=== PATIENT | male | born 1940 | race African-American/Black ===

== ENCOUNTER 2016-06-12 08:24 | Emergency (ER) | payer MEDICARE, OTHER ==
[~2016-06-12] VITALS: Ht 182.9 cm; Wt 77.1 kg
[~2016-06-12 08:24] MED LIST: ATOR20TA PO; IBRU140C; INSU100C7 SQ; METF1000 PO
[2016-06-12 08:37] VITALS: BP 151/79
== END 2016-06-12 10:06 | disposition home or self-care (01) ==
LOC: ER 08:28
DX: H10.33 Unspecified acute conjunctivitis, bilateral (principal); E11.9 Type 2 diabetes mellitus without complications; H35.30 Unspecified macular degeneration; I10 Essential (primary) hypertension; M10.9 Gout, unspecified; Z79.4 Long term (current) use of insulin; Z85.828 Personal history of other malignant neoplasm of skin
CPT/HCPCS: 99283; A4606; Z7610

== ENCOUNTER 2016-06-19 11:19 | Emergency (ER) | payer MEDICARE, OTHER ==
[~2016-06-19] VITALS: Ht 175.3 cm; Wt 70.8 kg
[2016-06-19 11:25] VITALS: BP 134/77
== END 2016-06-19 12:28 | disposition home or self-care (01) ==
LOC: ER 11:20
DX: H10.9 Unspecified conjunctivitis (principal); I10 Essential (primary) hypertension; M10.9 Gout, unspecified; E11.9 Type 2 diabetes mellitus without complications; Z79.4 Long term (current) use of insulin; Z85.828 Personal history of other malignant neoplasm of skin
CPT/HCPCS: A4606; Z7610

== ENCOUNTER 2017-08-04 13:08 | Inpatient (IN) | payer MEDICARE, OTHER ==
[~2017-08-04] VITALS: Ht 182.9 cm; Wt 69.4 kg
--- NOTE | 2017-08-04 13:08 | NUR ---
FRANCESCA FROM [facility] SENT BY DR SALINAS FOR STAPH INFECTION TO THE HEAD
--- NOTE | 2017-08-04 14:42 | NUR ---
TREATING ENGINEER HELPER AT BEDSIDE
[2017-08-04 14:48] LABS: BASOPHILS % (AUTO) 0.7 % (0.0-2.0); EOSINOPHILS % (AUTO) 3.3 % (0.0-6.0); HEMATOCRIT 36 % (39-51); HEMOGLOBIN 12.4 g/dL (13.5-17.5); LYMPHOCYTES # (AUTO) 0.6 /CMM (0.8-4.8); LYMPHOCYTES % (AUTO) 9.1 % (20.0-44.0); MEAN CORPUSCULAR HGB CONC 34 g/dl (31.0-36.0); MEAN CORPUSCULAR VOLUME 97 fL (80-96); MONOCYTES # (AUTO) 0.4 /CMM (0.1-1.30); MONOCYTES % (AUTO) 6.4 % (2.0-12.0); NEUTROPHILS # (AUTO) 5.4 /CMM (1.8-8.9); NEUTROPHILS % (AUTO) 80.5 % (43.0-81.0); PLATELET COUNT (AUTO) 121 /CMM (150-450); RDW COEFFICIENT OF VARIATION 13.1 (11.5-15.0); RED BLOOD CELL COUNT(AUTO) 3.69 MIL/uL (4.5-6.0); WHITE BLOOD COUNT (AUTO) 6.6 K/uL (4.3-11.0)
[2017-08-04] MEDS ORDERED: PIPERACILLIN /TAZOBACTAM 3.375 G in IV D5W 50 ML IV ONE (15:00)
[2017-08-04 15:05] LABS: CARBON DIOXIDE 31 mmol/L (21-32); CHLORIDE 101 mmol/L (98-107); CREATININE 1.4 mg/dL (0.6-1.3); GLUCOSE 159 mg/dL (74-106); SODIUM SERUM 140 mmol/L (136-145); UREA NITROGEN, BLOOD 25 mg/dL (7-18)
[2017-08-04 15:10] LABS: ALANINE AMINOTRANSFERASE 22 U/L (12-78); ALBUMIN 3.9 g/dL (3.4-5.0); ALKALINE PHOSPHATASE 87 U/L (46-116); ASPARTATE AMINOTRANSFERASE 21 U/L (15-37); BILIRUBIN,DIRECT 0.3 mg/dL (0.0-0.2); BILIRUBIN,TOTAL 0.7 mg/dL (0.2-1.0); TOTAL PROTEIN, SERUM 6.9 g/dL (6.4-8.2)
--- NOTE | 2017-08-04 15:45 | NUR ---
CALLED DR MURGUIA OFFICE AND A PAGE WAS SENT OUT TO HIM.
--- NOTE | 2017-08-04 15:51 | NUR ---
CALLED NURSING SHIRT MARKER AND REQUESTED A MED SURG BED FOR THIS PT.
[2017-08-04] MEDS ORDERED: ALLO100T PO (16:08)
[2017-08-04] MEDS ORDERED: MIRT15TA7 PO (16:08)
[2017-08-04] MEDS ORDERED: IBRU420T PO (16:08)
[2017-08-04] MEDS ORDERED: LINA5TAB PO (16:08)
[2017-08-04] MEDS ORDERED: DULA1.5P SQ (16:08)
[2017-08-04] MEDS ORDERED: NATE120T6 PO (16:08)
[2017-08-04] MEDS ORDERED: ASPI-1152 PO (16:08)
[2017-08-04] MEDS ORDERED: ACAR25TA2 PO (16:08)
[2017-08-04] MEDS ORDERED: PANT40TA2 PO (16:08)
[2017-08-04] MEDS ORDERED: DAPA10TA PO (16:08)
--- NOTE | 2017-08-04 16:22 | NUR ---
PT IS ASSIGNED TO MED SURG RM#: [id number], PT IS DIAGNOSED WITH SCALP CELLULITIS, AND SERG SALINAS IS THE ACCEPTING MD.
--- NOTE | 2017-08-04 16:29 | NUR ---
GAVE REPORT TO KRYSTINA PUCKETT MEDSURG STAPH CELLULITIS. ROOM 314-2
--- NOTE | 2017-08-04 17:30 | NUR ---
RN NOTES PT WAS BROUGHT UP TO THE FLOOR IN STABLE CONDITION. PT IS ALERT AND ORIENTED X4, ABLE TO AMBULATE TO THE BED. PT ON RA, RESPIRATIONS ARE EVEN AND UNLABORED. IV ON R WRIST INTACT AND PATENT. SAFETY MEASURES ARE IN PLACE, CALL LIGHT IS IN REACH. WILL CONTINUE TO MONITOR.
--- NOTE | 2017-08-04 18:37 | NUR ---
RN NOTES PT IS SITTING IN BED, AWAKE AND ALERT, RESTING COMFORTABLY. PT ON RA, RESPIRATIONS ARE EVEN AND UNLABORED. IV ON R WRIST INTACT AND SL. NO SIGNS OF DISTRESS NOTED. SAFETY MEASURES ARE IN PLACE, CALL LIGHT IS IN REACH. WILL ENDORSE TO STEAM FINISHER RN FOR CONTINUITY OF CARE.
--- NOTE | 2017-08-04 19:00 | NUR ---
MS RN NOTES RECEIVE PT IN BED A/OX 4,. NO S/S OF DISTRESS, STABLE, SAFETY MEASURES IN PLACE, CALL LIGHT WITHIN REACH, WILL CONTINUE TO MONITOR
[2017-08-04 20:00] VITALS: BP 145/71
--- NOTE | 2017-08-04 20:50 | NUR ---
SPOKE TO DR. SALINAS RECEIVE ORDER OF [facility] NOTED AND CARRIED OUT RECEIVED ORDERS MEDS VERIFIED ORDERS READ BACK AND VERIFIED NOTED AND CARRIED OUT
[2017-08-04] MEDS ORDERED: DEXTROSE 50%-WATER 50 ML DISP.SYRIN IV PRN ×2 (21:00→21:30)
[2017-08-04] MEDS ORDERED: INSULIN REGULAR, HUMAN 100 UNIT/ML 3 ML VIAL SQ PRN (21:00)
[2017-08-04] MEDS ORDERED: VANCOMYCIN 1 GM VIAL ONE (21:26)
[2017-08-04] MEDS: ATORVASTATIN 10 MG TABLET PO SCH (21:52)
[2017-08-04] MEDS ORDERED: BLOOD SUGAR DIAGNOSTIC 1 EACH STRIP IN SCH (22:00)
[2017-08-04] MEDS ORDERED: VANCOMYCIN 1 GM in IV D5W 250 ML IV ONE (22:00)
[2017-08-04] MEDS: BLOOD SUGAR DIAGNOSTIC 1 EACH STRIP IN SCH (22:04)
[2017-08-04] MEDS: INSULIN ASPART/LISPRO 100 UNIT/ML CARTRIDGE SQ PRN (22:05)
[2017-08-05] MEDS: BLOOD SUGAR DIAGNOSTIC 1 EACH STRIP IN SCH ×4 (06:14→21:52)
--- NOTE | 2017-08-05 06:23 | NUR ---
MS RN NOTES PT IN BED ASLEEP AND EASILY AWAKEN, NOT IN DISTRESS, AM CARE PROVIDED. TOLERATING ROOM AIR 98%. STABLE CONDITION. NO ACUTE CHANGES THROUGHOUT THE SHIFT. KEPT CLEAN AND DRY AND COMFORT. NURSING CARE RENDERED. NEEDS ATTENDED AND ANTICIPATED. GOOD SKIN CARE PROVIDED. ON LOW BED TO ENSURE SAFETY, CALL LIGHT WITHIN REACH, WILL ENDORSE TO THE NEXT SHIFT CONTINUE PLAN OF CARE
[2017-08-05] MEDS ORDERED: FEE PK DOSING 1 MIN EA MC ONE (07:01)
--- NOTE | 2017-08-05 07:01 | NUR ---
ENDORSE TO SADA RN TO GIVE 3 UNITS OF INSULIN OF NOVOLOG/HUMALOG SLIDING COVERAGE DRUG NOT AVAILABLE AND PER PT REQUEST. BLOOD SUGAR 180 MG/DL
--- NOTE | 2017-08-05 07:35 | NUR ---
MS/RN OPENING NOTE PATIENT IS RECEIVED IN BED AWAKE. ALERT AND ORIENTED X4. DENIES SOB. RESPIRATION REGULAR AND UNLABORED. DENIES PAIN. RIGHT WRIST G 20 PATENT AND SALINE LOCKED. BED LOW AND LOCKED. SIDE RAILS UP X2. CALL LIGHT WITHIN REACH. WILL CONTINUE TO MONITOR.
--- NOTE | 2017-08-05 07:37 | NUR ---
MS/RN NOTE SPOKE WITH NICOLE FROM PHARM TO DELIVER INSULIN TO BE GIVEN.
[2017-08-05 07:39] LABS: CALCIUM, SERUM 8.8 mg/dL (8.5-10.1); CARBON DIOXIDE 29 mmol/L (21-32); CHLORIDE 106 mmol/L (98-107); CREATININE 1.3 mg/dL (0.6-1.3); GLUCOSE 177 mg/dL (74-106); POTASSIUM 3.9 mmol/L (3.5-5.1); SODIUM SERUM 142 mmol/L (136-145); UREA NITROGEN, BLOOD 23 mg/dL (7-18)
[2017-08-05 07:46] LABS: BASOPHILS % (AUTO) 0.1 % (0.0-2.0); EOSINOPHILS % (AUTO) 3.5 % (0.0-6.0); HEMATOCRIT 33 % (39-51); HEMOGLOBIN 11.4 g/dL (13.5-17.5); LYMPHOCYTES # (AUTO) 0.4 /CMM (0.8-4.8); LYMPHOCYTES % (AUTO) 8.6 % (20.0-44.0); MEAN CORPUSCULAR HGB CONC 34 g/dl (31.0-36.0); MEAN CORPUSCULAR VOLUME 97 fL (80-96); MONOCYTES # (AUTO) 0.5 /CMM (0.1-1.30); MONOCYTES % (AUTO) 9.2 % (2.0-12.0); NEUTROPHILS # (AUTO) 4.1 /CMM (1.8-8.9); NEUTROPHILS % (AUTO) 78.6 % (43.0-81.0); PLATELET COUNT (AUTO) 87 /CMM (150-450); RDW COEFFICIENT OF VARIATION 13.1 (11.5-15.0); RED BLOOD CELL COUNT(AUTO) 3.43 MIL/uL (4.5-6.0); WHITE BLOOD COUNT (AUTO) 5.2 K/uL (4.3-11.0)
[2017-08-05 08:00] VITALS: BP 137/69
[2017-08-05] MEDS: METFORMIN 500 MG TABLET PO SCH ×2 (08:22→16:56)
[2017-08-05] MEDS: ALLOPURINOL 100 MG TABLET PO SCH (08:22)
[2017-08-05] MEDS: INSULIN ASPART/LISPRO 100 UNIT/ML CARTRIDGE SQ PRN ×4 (08:24→21:54)
[2017-08-05] MEDS ORDERED: ASPIRIN 81 MG TAB.CHEW PO SCH (09:00)
[2017-08-05 09:42] LABS: LYMPHOCYTES % (MANUAL) 8 % (16-48); MONOCYTES % (MANUAL) 5 % (0-11.0); NEUTROPHILS % (MANUAL) 87 (42-76)
[2017-08-05 16:00] VITALS: BP 126/70
[2017-08-05] MEDS ORDERED: VANCOMYCIN 1 GM in IV D5W 250 ML IV SCH (16:00)
--- NOTE | 2017-08-05 16:38 | NUR ---
MS/RN NOTE RECEIVED RIGHT VERTEX CULTURE AND SENSITIVITY RESULT FROM DR JACQUES CARSON`S OFFICE, REPORTED TO DR SALINAS. NEW ORDERS RECEIVED FROM DR SALINAS. THE NEW ORDERS READ BACK, VERIFIED. NOTED AND CARRIED OUT. THE PATIENT IS MADE AWARE.
[2017-08-05] MEDS ORDERED: INSULIN DETEMIR 100 UNIT/ML CARTRIDGE SQ SCH (17:00)
[2017-08-05] MEDS: INSULIN GLARGINE, 100 UNIT/ML CARTRIDGE SQ SCH (17:27)
--- NOTE | 2017-08-05 18:15 | NUR ---
MS/RN CLOSING NOTE PATIENT ALERT AND ORIENTED X4. DENIES SOB. RESPIRATION REGULAR AND UNLABORED. O2 SATURATION IN ROOM AIR AT 98%. PATIENT IN NO APPARENT DISTRESS. SCALP WOUND WITH NO ACTIVE BLEEDING. DRESSING INTACT. LEFT HAND G 24 PATENT AND SALINE LOCKED. PATIENT CONTINENT ON BOWEL AND BLADDER. GOOD SKIN CARE RENDERED. KEPT CLEAN, DRY AND COMFORTABLE. ALL NEEDS ATTENDED AND ANTICIPATED. CALL LIGHT WITHIN REACH. WILL ENDORSE TO CHIEF OF PARTY.
--- NOTE | 2017-08-05 19:40 | NUR ---
MS RN NOTE RECEIVED PATIENT FROM DAY SHIFT, PATIENT IS ALERT AND ORIENTEDX4, DENIES RESPIRATORY DISTRESS OR PAIN AT THIS TIME. AMBULATORY WITH STEADY GAIT. IV ON LEFT FA IS PATENT AND INTACT, SL ONLY. DRESSING ON SCALP NOTED, C/D/I. SRX2, BED IN LOW POSITION, CALL LIGHT WITHIN REACH, WILL CONTINUE TO MONITOR PATIENT.
[2017-08-05 20:00] VITALS: BP_SYST 102; BP_SYST 92; BP_DIAS 51; BP_DIAS 56
[2017-08-05] MEDS: CEFAZOLIN 1 GM in IV NS 0.9% 50 ML IV SCH (21:01)
[2017-08-05] MEDS: ATORVASTATIN 10 MG TABLET PO SCH (21:48)
[2017-08-06] MEDS: CEFAZOLIN 1 GM in IV NS 0.9% 50 ML IV SCH ×3 (04:50→21:06)
[2017-08-06] MEDS: BLOOD SUGAR DIAGNOSTIC 1 EACH STRIP IN SCH ×4 (05:36→21:06)
--- NOTE | 2017-08-06 06:35 | NUR ---
MS RN NOTE PATIENT IS RESTING IN BED COMFORTABLY, NO ACUTE DISTRESS NOTED THROUGHOUT THE SHIFT. ALL DUE MEDS GIVEN, MORNING CARE RENDERED. WILL ENDORSE TO DAY SHIFT NURSE FOR NERY.
--- NOTE | 2017-08-06 07:10 | NUR ---
ms rn initial notes Received patient in bed, awake, head of bed elevated, no SOB or distress noted. On room air and tolerated well. Alert and oriented x 4, verbally responsive and able to make needs known. IV intact and patent HL only. No complaint of pain or discomfort at this time, nor chest pain. Call light with in patient reach, will continue to monitor accordingly.
[2017-08-06 07:16] LABS: BASOPHILS % (AUTO) 0.7 % (0.0-2.0); EOSINOPHILS % (AUTO) 3.4 % (0.0-6.0); HEMATOCRIT 35 % (39-51); LYMPHOCYTES # (AUTO) 0.5 /CMM (0.8-4.8); LYMPHOCYTES % (AUTO) 10.9 % (20.0-44.0); MEAN CORPUSCULAR HGB CONC 34 g/dl (31.0-36.0); MEAN CORPUSCULAR VOLUME 97 fL (80-96); MONOCYTES # (AUTO) 0.4 /CMM (0.1-1.30); MONOCYTES % (AUTO) 9.2 % (2.0-12.0); NEUTROPHILS # (AUTO) 3.2 /CMM (1.8-8.9); NEUTROPHILS % (AUTO) 75.8 % (43.0-81.0); PLATELET COUNT (AUTO) 98 /CMM (150-450); RDW COEFFICIENT OF VARIATION 13.8 (11.5-15.0); RED BLOOD CELL COUNT(AUTO) 3.61 MIL/uL (4.5-6.0); WHITE BLOOD COUNT (AUTO) 4.3 K/uL (4.3-11.0)
[2017-08-06 07:26] LABS: CALCIUM, SERUM 8.8 mg/dL (8.5-10.1); CARBON DIOXIDE 32 mmol/L (21-32); CHLORIDE 104 mmol/L (98-107); CREATININE 1.2 mg/dL (0.6-1.3); GLUCOSE 108 mg/dL (74-106); POTASSIUM 4.4 mmol/L (3.5-5.1); SODIUM SERUM 142 mmol/L (136-145); UREA NITROGEN, BLOOD 26 mg/dL (7-18)
[2017-08-06 08:00] VITALS: BP 141/68
[2017-08-06 08:21] LABS: D-DIMER 0.34 mg/L(FEU (0.17-0.50); INR 1.03 (0.87-1.13)
[2017-08-06] MEDS: ALLOPURINOL 100 MG TABLET PO SCH (08:28)
[2017-08-06] MEDS: CLOPIDOGREL BISULFATE 75 MG TABLET PO SCH (08:28)
[2017-08-06] MEDS: METFORMIN 500 MG TABLET PO SCH ×2 (08:28→16:58)
[2017-08-06 09:15] LABS: LYMPHOCYTES % (MANUAL) 12 % (16-48); MONOCYTES % (MANUAL) 7 % (0-11.0); NEUTROPHILS % (MANUAL) 81 (42-76)
[2017-08-06] MEDS: INSULIN ASPART/LISPRO 100 UNIT/ML CARTRIDGE SQ PRN ×2 (12:11→16:59)
[2017-08-06 16:00] VITALS: BP 126/71
[2017-08-06] MEDS: INSULIN GLARGINE, 100 UNIT/ML CARTRIDGE SQ SCH (16:59)
--- NOTE | 2017-08-06 19:12 | NUR ---
ms rn closing notes All needs provided, attended, and anticipated, patient in stable condition at this time, endorsed to next shift RN to continue care. Call light with in patient reach.
[2017-08-06 20:00] VITALS: BP 100/63
[2017-08-06] MEDS: ATORVASTATIN 10 MG TABLET PO SCH (21:06)
[2017-08-07] MEDS: CEFAZOLIN 1 GM in IV NS 0.9% 50 ML IV SCH ×3 (05:10→21:00)
--- NOTE | 2017-08-07 06:16 | NUR ---
MS RN NOTES AWAKE & RESPONSIVE. NOT IN ANY DISTRESS. NO SOB NOTED. DENIES ANY PAIN OR DISCOMFORT AT THIS TIME. WITH IV-HL PATENT & INTACT. MONITORED ACCORDINGLY. CALL LIGHT WITH REACH. BED IN LOWEST POSITION. SR UP X 2 FOR SAFETY. WILL ENDORSE TO NEXT SHIFT.
[2017-08-07] MEDS: BLOOD SUGAR DIAGNOSTIC 1 EACH STRIP IN SCH ×4 (06:22→21:00)
[2017-08-07 07:26] LABS: BASOPHILS % (AUTO) 0.5 % (0.0-2.0); EOSINOPHILS % (AUTO) 2.8 % (0.0-6.0); HEMATOCRIT 34 % (39-51); HEMOGLOBIN 11.7 g/dL (13.5-17.5); LYMPHOCYTES # (AUTO) 0.4 /CMM (0.8-4.8); MEAN CORPUSCULAR HGB CONC 34 g/dl (31.0-36.0); MEAN CORPUSCULAR VOLUME 97 fL (80-96); MONOCYTES # (AUTO) 0.5 /CMM (0.1-1.30); MONOCYTES % (AUTO) 9.4 % (2.0-12.0); NEUTROPHILS # (AUTO) 3.9 /CMM (1.8-8.9); NEUTROPHILS % (AUTO) 78.3 % (43.0-81.0); PLATELET COUNT (AUTO) 90 /CMM (150-450); RDW COEFFICIENT OF VARIATION 13.8 (11.5-15.0); RED BLOOD CELL COUNT(AUTO) 3.54 MIL/uL (4.5-6.0)
[2017-08-07 07:33] LABS: CALCIUM, SERUM 8.5 mg/dL (8.5-10.1); CARBON DIOXIDE 29 mmol/L (21-32); CHLORIDE 104 mmol/L (98-107); CREATININE 1.2 mg/dL (0.6-1.3); GLUCOSE 114 mg/dL (74-106); SODIUM SERUM 141 mmol/L (136-145); UREA NITROGEN, BLOOD 30 mg/dL (7-18)
[2017-08-07 08:00] VITALS: BP 120/61
[2017-08-07] MEDS: CLOPIDOGREL BISULFATE 75 MG TABLET PO SCH (08:36)
[2017-08-07] MEDS: ALLOPURINOL 100 MG TABLET PO SCH (08:36)
[2017-08-07] MEDS: METFORMIN 500 MG TABLET PO SCH ×2 (08:36→17:02)
[2017-08-07 09:19] LABS: EOSINOPHILS % (MANUAL) 2 % (0-4); LYMPHOCYTES % (MANUAL) 8 % (16-48); MONOCYTES % (MANUAL) 7 % (0-11.0); NEUTROPHILS % (MANUAL) 83 (42-76)
[2017-08-07] MEDS: INSULIN ASPART/LISPRO 100 UNIT/ML CARTRIDGE SQ PRN ×3 (12:01→21:21)
[2017-08-07 16:00] VITALS: BP 120/72
[2017-08-07 17:00] VITALS: BP 120/72
[2017-08-07] MEDS: INSULIN GLARGINE, 100 UNIT/ML CARTRIDGE SQ SCH (17:03)
--- NOTE | 2017-08-07 19:12 | NUR ---
ms rn closing notes All needs provided, attended, and anticipated, patient is in stable condition. Endorsed to next shift RN to continue care. Call light with in patient reach.
[2017-08-07 20:00] VITALS: BP 124/72
[2017-08-07] MEDS: ATORVASTATIN 10 MG TABLET PO SCH (21:00)
[2017-08-08] MEDS: CEFAZOLIN 1 GM in IV NS 0.9% 50 ML IV SCH ×3 (05:26→20:31)
[2017-08-08] MEDS: BLOOD SUGAR DIAGNOSTIC 1 EACH STRIP IN SCH ×3 (05:26→16:56)
[2017-08-08] MEDS ORDERED: INSULIN ASPART/LISPRO 100 UNIT/ML CARTRIDGE SQ SCH (07:30)
[2017-08-08 07:53] LABS: CALCIUM, SERUM 8.2 mg/dL (8.5-10.1); CARBON DIOXIDE 28 mmol/L (21-32); CHLORIDE 105 mmol/L (98-107); CREATININE 1.1 mg/dL (0.6-1.3); GLUCOSE 120 mg/dL (74-106); POTASSIUM 3.9 mmol/L (3.5-5.1); SODIUM SERUM 142 mmol/L (136-145); UREA NITROGEN, BLOOD 34 mg/dL (7-18)
[2017-08-08 08:00] VITALS: BP 126/71
[2017-08-08 08:03] LABS: BASOPHILS % (AUTO) 0.1 % (0.0-2.0); EOSINOPHILS % (AUTO) 3.5 % (0.0-6.0); HEMATOCRIT 32 % (39-51); HEMOGLOBIN 11.1 g/dL (13.5-17.5); LYMPHOCYTES # (AUTO) 0.5 /CMM (0.8-4.8); LYMPHOCYTES % (AUTO) 10.1 % (20.0-44.0); MEAN CORPUSCULAR HGB CONC 35 g/dl (31.0-36.0); MEAN CORPUSCULAR VOLUME 97 fL (80-96); MONOCYTES # (AUTO) 0.4 /CMM (0.1-1.30); MONOCYTES % (AUTO) 9.3 % (2.0-12.0); NEUTROPHILS # (AUTO) 3.5 /CMM (1.8-8.9); PLATELET COUNT (AUTO) 89 /CMM (150-450); RDW COEFFICIENT OF VARIATION 13.9 (11.5-15.0); RED BLOOD CELL COUNT(AUTO) 3.32 MIL/uL (4.5-6.0); WHITE BLOOD COUNT (AUTO) 4.6 K/uL (4.3-11.0)
[2017-08-08] MEDS: METFORMIN 500 MG TABLET PO SCH ×2 (08:09→16:54)
[2017-08-08] MEDS: ALLOPURINOL 100 MG TABLET PO SCH (08:09)
[2017-08-08] MEDS: CLOPIDOGREL BISULFATE 75 MG TABLET PO SCH (08:09)
[2017-08-08 10:50] LABS: EOSINOPHILS % (MANUAL) 2 % (0-4); LYMPHOCYTES % (MANUAL) 11 % (16-48); MONOCYTES % (MANUAL) 5 % (0-11.0); NEUTROPHILS % (MANUAL) 82 (42-76)
[2017-08-08] MEDS: INSULIN ASPART/LISPRO 100 UNIT/ML CARTRIDGE SQ PRN ×2 (12:31→16:55)
[2017-08-08 16:00] VITALS: BP 135/71
[2017-08-08] MEDS: INSULIN GLARGINE, 100 UNIT/ML CARTRIDGE SQ SCH (16:56)
--- NOTE | 2017-08-08 19:30 | NUR ---
RN MS OPENING NOTES RECEIVED PATIENT AWAKE ALERT AND ORIENTED X 4 , RESPIRATIONS EVEN AND UNLABORED, NO COMPLAINTS OF PAIN OR DISCOMFORT AT THIS TIME, IV SITE TO LEFT FA 24GUAGE INTACT AND PATENT, NO REDNESS NO INFILTRATION NOTED,AWAITING DISCHARGE PACKING TRACTOR MACHINE OPERATOR AT THIS TIME, ORIENTED TO STAFF, ROOM, SAFETY MEASURES IN PLACE, CALL LIGHT KEPT WITHIN REACH, WILL CONTINUE TO MONITOR.
[2017-08-08 20:00] VITALS: BP 147/70
[2017-08-08 20:05] VITALS: BP 147/70
--- NOTE | 2017-08-08 21:55 | NUR ---
RN MS DISCHARGE NOTES PATIENT DISCHARGE TO [facility], LEFT IN STABLE CONDITION ACCOMPANIED BY 2 EMT, RESPIRATIONS EVEN AND UNLABORED, NO COMPLAINTS OF PAIN OR DISCOMFORT, IV SITE TO LEFT FA INTACT AND PATENT,NO REDNESS NO INFILTRATION PRESENT, IV INTACT, PATIENT TO RECEIVE ANTIBIOTICS AT [facility] [place].ALL BELONGINGS WITH PATIENT, ID BAND REMOVED.
== END 2017-08-08 21:55 | DRG 603 ==
LOC: ER 13:12 → MED 16:34
PROVIDERS: ADMIT Internal Medicine; ATTEND Internal Medicine
DX: L03.811 Cellulitis of head [any part, except face] (principal); E46 Unspecified protein-calorie malnutrition; C83.30 Diffuse large B-cell lymphoma, unspecified site; D69.6 Thrombocytopenia, unspecified; D89.9 Disorder involving the immune mechanism, unspecified; B95.62 Methicillin resistant Staphylococcus aureus infection as the cause of diseases classified elsewhere; E11.649 Type 2 diabetes mellitus with hypoglycemia without coma; M10.9 Gout, unspecified; Z79.82 Long term (current) use of aspirin; Z79.899 Other long term (current) drug therapy; Z86.73 Personal history of transient ischemic attack (TIA), and cerebral infarction without residual deficits; Z82.5 Family history of asthma and other chronic lower respiratory diseases; Z80.3 Family history of malignant neoplasm of breast; I10 Essential (primary) hypertension; G14 Postpolio syndrome; Z85.828 Personal history of other malignant neoplasm of skin
CPT/HCPCS: 36415; 71045-TC; 80048-TC; 80076-TC; 82962-TC; 85025-TC; 85396; 85730-TC; 87040-TC; 87070-TC; 87081-TC; A4216; A4606; A6402; J0690; J1815; J2543; J3370; J7050; J7060; Z7610

== ENCOUNTER 2019-12-10 21:27 | Inpatient (IN) | payer MEDICARE, OTHER ==
[~2019-12-10] VITALS: Ht 182.9 cm; Wt 72.6 kg
[~2019-12-10 21:27] MED LIST changes: +ACAR25TA2 PO; +ALLO100T PO; +ASPI-1420 PO; +DAPA10TA PO; +DULA1.5P SQ; -IBRU140C; +IBRU420T PO; +LINA5TAB PO; +MIRT15TA7 PO; +NATE120T6 PO; +PANT40TA2 PO
--- NOTE | 2019-12-10 22:00 | NUR ---
PT FRANCESCA 1ST MED FOR L CROSS AND FOOT"CELLULITIS" SINCE TUESDAY. NOTED W/ REDNESS AND WARM TO TOUCH. PT AAOX4, VSS,RESPIRATIONS EVEN AND UNLABORED ON RA W/ NAD NOTED. PT CONNECTED TO THE MONITOR AND POX
--- NOTE | 2019-12-10 22:56 | NUR ---
SALES OPERATIONS ASSISTANT AT BEDSIDE FOR BLOOD DRAW
[2019-12-10] MEDS ORDERED: VANCOMYCIN 1 GM in IV D5W 250 ML IV ONE (23:00)
[2019-12-10 23:10] LABS: BASOPHILS % (AUTO) 0.4 % (0.0-2.0); EOSINOPHILS % (AUTO) 1.6 % (0.0-6.0); HEMATOCRIT 41 % (39-51); HEMOGLOBIN 13.2 g/dL (13.5-17.5); LYMPHOCYTES # (AUTO) 0.5 /CMM (0.8-4.8); LYMPHOCYTES % (AUTO) 7.1 % (20.0-44.0); MEAN CORPUSCULAR HGB CONC 33 g/dl (31.0-36.0); MEAN CORPUSCULAR VOLUME 98 fL (80-96); MONOCYTES # (AUTO) 0.9 /CMM (0.1-1.30); MONOCYTES % (AUTO) 13.4 % (2.0-12.0); NEUTROPHILS # (AUTO) 5.2 /CMM (1.8-8.9); NEUTROPHILS % (AUTO) 77.5 % (43.0-81.0); PLATELET COUNT (AUTO) 92 /CMM (150-450); RED BLOOD CELL COUNT(AUTO) 4.15 MIL/uL (4.5-6.0); WHITE BLOOD COUNT (AUTO) 6.7 K/uL (4.3-11.0)
[2019-12-10 23:14] LABS: APPEARANCE,URINE CLEAR (CLEAR); BILIRUBIN,URINE NEGATIVE (NEGATIVE); BLOOD, URINE TRACE-INTA Ery/uL (NEGATIVE); COLOR,URINE YELLOW (YELLOW); KETONES,URINE NEGATIVE (NEGATIVE); LEUKOCYTE ESTERASE ,URINE NEGATIVE (NEGATIVE); NITRITE, URINE NEGATIVE (NEGATIVE); PROTEIN,URINE NEGATIVE (NEGATIVE); UGLUCOSE >=1000 mg/dL (NEGATIVE)
[2019-12-10] MEDS ORDERED: VANCOMYCIN 1 GM VIAL ONE (23:14)
[2019-12-10 23:21] LABS: BACTERIA,URINE Few /HPF (None Seen); SQUAMOUS EPITHELIAL CELL,UR Rare /HPF (None Seen); WBC,URINE 0-2 /HPF (0-3)
--- NOTE | 2019-12-10 23:23 | NUR ---
CALLED HOUSE SUP FOR MS BED
[2019-12-10 23:24] LABS: ALANINE AMINOTRANSFERASE 27 U/L (12-78); ALBUMIN 3.6 g/dL (3.4-5.0); ALKALINE PHOSPHATASE 102 U/L (46-116); ASPARTATE AMINOTRANSFERASE 19 U/L (15-37); BILIRUBIN,DIRECT 0.2 mg/dL (0.0-0.2); BILIRUBIN,TOTAL 0.6 mg/dL (0.2-1.0); CALCIUM, SERUM 8.7 mg/dL (8.5-10.1); CARBON DIOXIDE 30 mmol/L (21-32); CHLORIDE 103 mmol/L (98-107); POTASSIUM 4.4 mmol/L (3.5-5.1); SODIUM SERUM 142 mmol/L (136-145); TOTAL PROTEIN, SERUM 6.9 g/dL (6.4-8.2)
[2019-12-10 23:40] LABS: LYMPHOCYTES % (MANUAL) 6 % (16-48); MONOCYTES % (MANUAL) 9 % (0-11.0); NEUTROPHILS % (MANUAL) 85 (42-76)
[2019-12-10 23:56] LABS: CREATININE 1.4 mg/dL (0.6-1.3); GLUCOSE 198 mg/dL (74-106); UREA NITROGEN, BLOOD 30 mg/dL (7-18)
--- NOTE | 2019-12-11 00:14 | NUR ---
COVID SWAB COLLECTED AND SENT TO LAB
--- NOTE | 2019-12-11 02:04 | NUR ---
REPORT GIVEN TO LAVERN FOLEY FOR NERY
[2019-12-11 02:30] VITALS: BP 148/60
--- NOTE | 2019-12-11 02:30 | NUR ---
RN ADMITTING NOTES PATIENT RECEIVED FROM ER [facility]IA [facility] ACCOMPANIED BY ER STAFF. PATIENT A/O X 3, ABLE TO AMBULATE. NO SIGNS IF ACUTE DISTRESS. NO COMPLAINTS OF PAIN OR DISCOMFORT. LEFT LOWER EXTREM. RED AND WARM TO TOUCH, PULSE PRESENT- BUT NOT PAINFUL STATED BY PT. IV LOCATED ON R FA #20 PATENT AND INTACT. PATIENT ORIENTED TO ROOM AND STAFF. ALL BELONGINGS ACCOUNTED FOR. SKIN ASSESSMENT DONE. VITALS TAKEN 148/ 60 HR 64 RR 18 T 98.6 O2 99%. SAFETY PRECAUTIONS IN PLACE WITH BED IN LOWEST POSITION, CALL LIGHT WITHIN REACH, BREAKS ON, SIDE RAILS UP. ADMITTING ORDERS RECEIVED BY GERMAINE YEPEZ. ORDERS CARRIED OUT. WILL CONTINUE TO MONITOR THROUGHOUT THE SHIFT.
--- NOTE | 2019-12-11 03:11 | NUR ---
PT TRANSFERRED TO ROOM IN STABLE CONDITION
[2019-12-11] MEDS ORDERED: AMLO5TAB9 PO (03:39)
[2019-12-11] MEDS ORDERED: METF-440 PO (03:39)
[2019-12-11] MEDS ORDERED: METO25TA4 PO (03:39)
[2019-12-11] MEDS ORDERED: IBRU140T PO (03:39)
[2019-12-11] MEDS ORDERED: CLOP75TA15 PO (03:39)
[2019-12-11] MEDS ORDERED: CHOL400T11 GT (03:39)
[2019-12-11] MEDS ORDERED: EMPA10TA PO (03:39)
[2019-12-11] MEDS ORDERED: INSU100V7 SQ (03:39)
[2019-12-11] MEDS ORDERED: NPH,100V SQ (04:18)
[2019-12-11] MEDS ORDERED: INSU4CAR IH (04:23)
[2019-12-11 04:28] LABS: BASOPHILS % (AUTO) 0.2 % (0.0-2.0); HEMATOCRIT 39 % (39-51); HEMOGLOBIN 12.9 g/dL (13.5-17.5); LYMPHOCYTES # (AUTO) 0.6 /CMM (0.8-4.8); MEAN CORPUSCULAR HGB CONC 33 g/dl (31.0-36.0); MEAN CORPUSCULAR VOLUME 96 fL (80-96); MONOCYTES # (AUTO) 0.9 /CMM (0.1-1.30); MONOCYTES % (AUTO) 13.9 % (2.0-12.0); NEUTROPHILS # (AUTO) 4.7 /CMM (1.8-8.9); NEUTROPHILS % (AUTO) 74.9 % (43.0-81.0); PLATELET COUNT (AUTO) 82 /CMM (150-450); RED BLOOD CELL COUNT(AUTO) 4.05 MIL/uL (4.5-6.0); WHITE BLOOD COUNT (AUTO) 6.3 K/uL (4.3-11.0)
[2019-12-11 04:47] LABS: ALANINE AMINOTRANSFERASE 25 U/L (12-78); ALBUMIN 3.2 g/dL (3.4-5.0); ALKALINE PHOSPHATASE 89 U/L (46-116); ASPARTATE AMINOTRANSFERASE 17 U/L (15-37); BILIRUBIN,TOTAL 0.6 mg/dL (0.2-1.0); CALCIUM, SERUM 8.5 mg/dL (8.5-10.1); CARBON DIOXIDE 28 mmol/L (21-32); CHLORIDE 104 mmol/L (98-107); CREATININE 1.4 mg/dL (0.6-1.3); GLUCOSE 194 mg/dL (74-106); POTASSIUM 3.6 mmol/L (3.5-5.1); SODIUM SERUM 142 mmol/L (136-145); TOTAL PROTEIN, SERUM 6.3 g/dL (6.4-8.2); UREA NITROGEN, BLOOD 27 mg/dL (7-18)
[2019-12-11 05:41] LABS: LYMPHOCYTES % (MANUAL) 8 % (16-48); NEUTROPHILS % (MANUAL) 83 (42-76)
[2019-12-11 05:42] LABS: MONOCYTES % (MANUAL) 9 % (0-11.0)
--- NOTE | 2019-12-11 06:40 | NUR ---
RN CLOSING NOTES PATIENT IN BED RESTING A/O X 3. STABLE ON RA WITH BREATHING EVEN AND UNLABORED, NO SOB NOTED. NO SIGNS OF ACUTE DISTRESS. NO COMPLAINTS OF PAIN OR DISCOMFORT AT THE MOMENT. IV LOCATED ON R FA#20 SL PATENT AND INTACT. SAFETY PRECAUTIONS IN PLACE WITH BED IN LOWEST POSITION, CALL LIGHT WITHIN REACH, BREAKS ON, SIDE RAILS UP, BED ALARM ON. ALL NEEDS ATTENDED TO. WILL ENDORSE TO ONCOMING SHIFT ABOUT NERY.
--- NOTE | 2019-12-11 07:10 | NUR ---
RN OPENING NOTES RECEIVED PATIENT IN BED RESTING A/O X 3. PATIENT IS STABLE ON RA WITH BREATHING EVEN AND UNLABORED, NO SOB NOTED. NO SIGNS OF ACUTE DISTRESS. NO COMPLAINTS OF PAIN OR DISCOMFORT AT THE MOMENT. IV ACCESS NOTED ON R FA#20 SL PATENT AND INTACT. SAFETY PRECAUTIONS IN PLACE WITH BED LOCKED AND IN LOWEST POSITION, CALL LIGHT WITHIN EASY REACH, SIDE RAILS UP, BED ALARM ON. WILL CONTINUE TO MONITOR.
[2019-12-11] MEDS: METFORMIN 500 MG TABLET PO SCH ×2 (07:44→16:30)
[2019-12-11] MEDS: PANTOPRAZOLE 40 MG TABLET.DR PO SCH (07:44)
[2019-12-11] MEDS ORDERED: METFORMIN 500 MG TABLET PO SCH ×2 (08:00)
[2019-12-11 08:14] VITALS: BP 135/55
[2019-12-11] MEDS: ALLOPURINOL 100 MG TABLET PO SCH (08:28)
[2019-12-11] MEDS: LINAGLIPTIN 5 MG TABLET PO SCH (08:28)
[2019-12-11] MEDS: AMLODIPINE BESYLATE 5 MG TABLET PO SCH (08:29)
[2019-12-11] MEDS: ACARBOSE 50 MG TABLET PO SCH ×3 (08:38→16:30)
[2019-12-11] MEDS: METOPROLOL SUCCINATE 25 MG TAB.SR.24H PO SCH (08:46)
--- NOTE | 2019-12-11 08:59 | NUR ---
WOUND CARE CONSULT: REVIEWED CHART, NURSING DOCUMENTATION AND PHOTOS WHICH INDICATE LEFT ARM REDNESS/DISCOLORATION, REDNESS TO LEFT FOOT AND REDNESS TO BUTTOCKS, PRESENT ON ADMISSION. CURRENT SAIGE SCORE IS 16. RECOMMENDATIONS MADE FOR SKIN PROTECTION. DISCUSSED WITH NURSING STAFF. RN TO DISCUSS WITH MD POSSIBLE DPM CONSULT FOR LEFT FOOT. MD IN AGREEMENT WITH PLAN OF CARE. Addendum: 12/11/19 at 0901 by CHLOE PATINO WNDNU DRY LESION TO TOP OF HEAD ALSO NOTED IN ADMISSION PHOTOS.
[2019-12-11] MEDS ORDERED: ASPIRIN EC 81 MG TABLET.DR PO SCH ×2 (09:00)
[2019-12-11] MEDS ORDERED: CHOLECALCIFEROL (VITAMIN D 3) 400 UNIT TABLET GT SCH (09:00)
[2019-12-11] MEDS ORDERED: CLOPIDOGREL BISULFATE 75 MG TABLET PO SCH (09:00)
[2019-12-11] MEDS ORDERED: CEFTRIAXONE 1 G VIAL IM SCH (09:00)
[2019-12-11] MEDS ORDERED: IBRUTINIB 420 MG PO SCH (09:00)
[2019-12-11] MEDS ORDERED: Medication Not On Formulary EA (Empagliflozin (Jardiance) 10 MG) PO SCH (09:00)
[2019-12-11] MEDS ORDERED: Z GUARD REMEDY 2 OZ OINT TP PRN (09:00)
[2019-12-11] MEDS: NATEGLINIDE 60 MG TABLET PO SCH ×3 (09:08→17:59)
[2019-12-11] MEDS: CEFTRIAXONE 1 G in IV D5W 50 ML IV SCH (09:09)
[2019-12-11] MEDS: CHOLECALCIFEROL 1,000 UNIT TABLET (VIT D3) PO SCH (09:09)
--- NOTE | 2019-12-11 10:29 | NUR ---
RN NOTES PHARMACY CALLED REGARDING UNABLE TO SUPPLY FOUR MEDICATIONS THAT PATIENT TAKES AT [facility]. PATIENTS DOES NOT HAVE FAMILY MEMBER TO DROP OFF MEDICATION. WILL NOTIFY CHARGE NURSE AND SEE IF WE CAN ARRANGE A STRUCTURAL DESIGN ENGINEER.
[2019-12-11] MEDS: VANCOMYCIN 0.75 GM in IV D5W 250 ML IV SCH ×2 (11:08→22:12)
--- NOTE | 2019-12-11 11:43 | NUR ---
RN NOTES FOLLOWING UP REGARDING PHARMACY UNABLE TO SUPPLY FOUR MEDICATIONS THAT PATIENT TAKES AT [facility]. PATIENTS DOES NOT HAVE FAMILY MEMBER TO DROP OFF MEDICATION. SPOKE TO LARD TUB WASHER JUDY , PER LARD TUB WASHER WILL ARRANGE A TREAD CUTTER FOR PATIENT MEDICATIONS. CHARGE NURSE, PHARMACY AND PATIENT MADE AWARE.
[2019-12-11] MEDS ORDERED: INSULIN GLARGINE, 100 UNIT/ML CARTRIDGE SQ SCH (16:00)
--- NOTE | 2019-12-11 16:47 | NUR ---
RN NOTE CALLED PHARMACY INSULIN GLARGINE IS NOT IN SUPPLY. PER PHARMACY WILL SEND IT.
[2019-12-11] MEDS: INSULIN GLARGINE, 100 UNIT/ML CARTRIDGE SQ SCH (18:01)
--- NOTE | 2019-12-11 18:45 | NUR ---
RN OPENING NOTES WILL ENDORSE TO PM NURSE FOR NERY. PATIENT IN BED RESTING A/O X 3. PATIENT IS STABLE ON RA SAT 99%. BREATHING ARE EVEN AND UNLABORED, NO SOB NOTED. NO SIGNS OF ACUTE DISTRESS. NO COMPLAINTS OF PAIN OR DISCOMFORT AT THE MOMENT. IV ACCESS ON R FA#20 SL PATENT AND INTACT. SAFETY PRECAUTIONS IN PLACE WITH BED LOCKED AND IN LOWEST POSITION, CALL LIGHT WITHIN EASY REACH, SIDE RAILS UP, BED ALARM ON. WILL CONTINUE TO MONITOR.
--- NOTE | 2019-12-11 19:56 | NUR ---
MS OF RECEIVED PT IN BED A/O X 4, NO SOB NOTED. NO DISTRESS OR DISCOMFORT NOTED. DENIES PAIN. RFA #20 SL INTACT AND PATENT. TKO NS. NO S/S OF INFILTRATION NOTED. PT ABLE TO USE URINAL. NO S/S OF HYPO OR HYPERGLYCEMIA NOTED. KEPT HIM DRY AND CLEAN. ALL NEEDS ATTENDED. VSS. CONTINUE TO MONITOR HIM.
[2019-12-11 20:00] VITALS: BP 139/57
[2019-12-11] MEDS: ATORVASTATIN 10 MG TABLET PO SCH (22:12)
[2019-12-11] MEDS: MIRTAZAPINE 15 MG TABLET PO SCH (22:12)
--- NOTE | 2019-12-12 03:00 | NUR ---
MS RN NOTE TRANSFERRED PT IN ROOM 106 PER NURSING DYNAMO REPAIRER. PT IN STABLE CONDITION. NO DISTRESS OR DISCOMFORT NOTED. DENIES PAIN.
--- NOTE | 2019-12-12 05:00 | NUR ---
Received patient stable,awake,alert not in any distress.Denies any pain,denies any SOB.needs attended.
[2019-12-12 05:18] LABS: CARBON DIOXIDE 26 mmol/L (21-32); CHLORIDE 101 mmol/L (98-107); CREATININE 1.5 mg/dL (0.6-1.3); GLUCOSE 301 mg/dL (74-106); POTASSIUM 3.8 mmol/L (3.5-5.1); SODIUM SERUM 137 mmol/L (136-145); UREA NITROGEN, BLOOD 30 mg/dL (7-18)
--- NOTE | 2019-12-12 07:00 | NUR ---
RN MS1 PATIENT IS AWAKE AND RESPONSIVE, ABLE TO FOLLOW COMMANDS AND CARRY CONVERSATION. PATIENT IS A/O X4 . PATIENT HAS L LOWEST EXT CELLULITIS. PATIENT HAS HAS URINAL BY BED SIDE. PATIENT ABLE STATE HE IS ABLE TO WALK TO AND FORM BATHROOM PATIENT WAS NOTIFIED TO CALL NURSE , FOR ASSISTANCE. PATIENT LLE RED/ WAR. TOP OF HEAD HAS SKIN GROWTH. DRY PATIENT HAS SACRAL REDNESS. PATIENT ON CCHHO DIET. RFA 20 TKO RUNING. BED LOCKED LOWEST POSITION CALL LIGHT WITH IN REACH ALL SAFETY MEASURE IMPLEMENTED
--- NOTE | 2019-12-12 07:00 | NUR ---
Report given to Macho PUCKETT
[2019-12-12 08:00] VITALS: BP 143/78
[2019-12-12] MEDS: METFORMIN 500 MG TABLET PO SCH ×2 (09:19→16:44)
[2019-12-12] MEDS: CHOLECALCIFEROL 1,000 UNIT TABLET (VIT D3) PO SCH (09:19)
[2019-12-12] MEDS: CEFTRIAXONE 1 G in IV D5W 50 ML IV SCH (09:19)
[2019-12-12] MEDS: NATEGLINIDE 60 MG TABLET PO SCH ×3 (09:20→17:06)
[2019-12-12] MEDS: LINAGLIPTIN 5 MG TABLET PO SCH (09:20)
[2019-12-12] MEDS: METOPROLOL SUCCINATE 25 MG TAB.SR.24H PO SCH (09:20)
[2019-12-12] MEDS: ALLOPURINOL 100 MG TABLET PO SCH (09:20)
[2019-12-12] MEDS: AMLODIPINE BESYLATE 5 MG TABLET PO SCH (09:20)
[2019-12-12] MEDS: PANTOPRAZOLE 40 MG TABLET.DR PO SCH (09:20)
[2019-12-12] MEDS: ACARBOSE 50 MG TABLET PO SCH ×3 (09:31→16:44)
--- NOTE | 2019-12-12 10:38 | NUR ---
WOUND CARE CONSULT: RECEIVED REQUEST FROM RN FOR WOUND CONSULT ON RT ARM SKIN TEAR AND GLUTEAL CREASE INCONTINENCE ASSOCIATED SKIN DAMAGE/REDNESS. RECOMMENDATIONS MADE FOR SKIN PROTECTION AND WOUND CARE. DISCUSSED WITH NURSING STAFF. WILL SEE PRN. GANRER IN AGREEMENT WITH PLAN OF CARE.
--- NOTE | 2019-12-12 10:50 | NUR ---
MS1 - REPORT GIVEN TO LUPILLO NURSE
[2019-12-12] MEDS: CLOPIDOGREL BISULFATE 75 MG TABLET PO SCH (11:34)
[2019-12-12] MEDS: VANCOMYCIN 0.75 GM in IV D5W 250 ML IV SCH ×2 (11:34→23:34)
[2019-12-12] MEDS: ANCEF 1 GM/50 ML D5W IV SCH ×4 (14:11→20:07)
--- NOTE | 2019-12-12 14:45 | NUR ---
RECEIVED MEDICATION JARDIANCE AND IMBRUVICA FROM URBAN DESIGNER AND GAVE TO PHARMACY
[2019-12-12 16:00] VITALS: BP 153/63
[2019-12-12] MEDS ORDERED: DEXTROSE 50%-WATER 50 ML DISP.SYRIN IV PRN (16:00)
--- NOTE | 2019-12-12 16:37 | NUR ---
ORDERED GLUCOSE RANDOM FOR PATIENT POC GLUCOSE IS >400. NOTIFIED DR SALINAS.
[2019-12-12] MEDS: BLOOD SUGAR DIAGNOSTIC 1 EACH STRIP IN SCH ×2 (16:44→21:51)
[2019-12-12] MEDS: INSULIN GLARGINE, 100 UNIT/ML CARTRIDGE SQ SCH ×2 (17:02→18:50)
[2019-12-12] MEDS: INSULIN ASPART/LISPRO 100 UNIT/ML CARTRIDGE SQ PRN ×2 (17:03→21:45)
--- NOTE | 2019-12-12 18:10 | NUR ---
SEEN BY DR SALINAS VIA [facility]. NO NEW ORDERS. INFORMED DR SALINAS PATIENT IS ABLE TO DO RANGE OF MOTION EXERCISES WITH LOWER EXTREMITIES. PATIENT IS ABLE TO GO TO THE BATHROOM.
--- NOTE | 2019-12-12 18:51 | NUR ---
PER DR ULRICH GIVE ANOTHER LANTUS 8 UNITS TO PATIENT
--- NOTE | 2019-12-12 19:08 | NUR ---
RN CLOSING NOTE Patient is in bed asleep calm and relaxed no signs of distress. No co pain or discomfort. All due meds given. Endorsed to warehouse shift supervisor nurse for sriram,.
--- NOTE | 2019-12-12 19:33 | NUR ---
MS/RN OPENING NOTES RECEIVED PATIENT IN BED, AWAKE, ALERT X2, ABLE TO COOPERATE WITH CARE, CAN RESPOND WITH SIMPLE ANSWER, ON ROOM AIR, RESPIRATIONS EVEN AND UNLABORED, RECEIVED ENDORSEMENT FROM AM RN FOR NERY. BED LOCKED, CALL LIGHTS WITHIN REACH, DISCUSSED SAFETY MEASURES AND USE OF CALL LIGHTS FOR SAFETY, BED ALARM ON, PATIENT URINAL WITHIN REACH, CAN AMBULATE WITH ASSIST, IV SITE ON RFA GAUGE 20 PATENT, LEFT KNEE INFLAMES, OFF LOAD, AWAITING FOR DOPPLER STUDIES PER MD REQUEST AND ORDER, CONTINUE TO PROVIDE CARE, ABLE TO RESPOND. NO PAIN VERBALIZED AND OBSERVED.
[2019-12-12 19:54] VITALS: BP 119/62
[2019-12-12 20:00] VITALS: BP 119/62
--- NOTE | 2019-12-12 21:46 | NUR ---
blood sugar check at 283, administered 6 units coverage per sliding scale.
[2019-12-12] MEDS: MIRTAZAPINE 15 MG TABLET PO SCH (21:53)
[2019-12-12] MEDS: ATORVASTATIN 10 MG TABLET PO SCH (21:54)
[2019-12-13] VITALS: BP 119/62
[2019-12-13 04:00] VITALS: BP 119/48
[2019-12-13] MEDS: ANCEF 1 GM/50 ML D5W IV SCH ×6 (04:03→20:03)
--- NOTE | 2019-12-13 06:52 | NUR ---
106-M/RN NOTES PATIENT ALERT, ORIENTED X2, RESPIRATIONS EVEN AND UNLABORED, ON ROOM AIR, ATTENDED ALL NEEDS, SAFETY MEASURES PLACED, BED LOCEKD, CALL LIGHTS WITHIN REACH, ATTENDED ALL NEEDS, BED ALARM ON. WILL ENDORSE TO AM RN FOR NERY.
[2019-12-13 07:00] LABS: CALCIUM, SERUM 8.5 mg/dL (8.5-10.1); CREATININE 1.1 mg/dL (0.6-1.3); POTASSIUM 3.6 mmol/L (3.5-5.1)
[2019-12-13 08:00] VITALS: BP 108/51
--- NOTE | 2019-12-13 08:00 | NUR ---
MS RN NOTES PT IN BED A&O X3 WITH PERIOD OF FORGETFULNESS NO SOB ON RA SAT=99% NOTED RIGHT ARM W REDNESS AND SWELLING WILL KEEP ELEVATED. ABLE TO EAT BREAKFAST 100% RFA #20 HEP LOCK INTACT AND FLUSH, BED LOW LOCK POSITION SAFETY MEASURES ABSORBED, ASSISTED PT TO USE URINAL WILL CONT TO MONITOR
[2019-12-13] MEDS: CHOLECALCIFEROL 1,000 UNIT TABLET (VIT D3) PO SCH (08:18)
[2019-12-13] MEDS: METOPROLOL SUCCINATE 25 MG TAB.SR.24H PO SCH (08:19)
[2019-12-13] MEDS: PANTOPRAZOLE 40 MG TABLET.DR PO SCH (08:19)
[2019-12-13] MEDS: AMLODIPINE BESYLATE 5 MG TABLET PO SCH (08:19)
[2019-12-13] MEDS: METFORMIN 500 MG TABLET PO SCH ×2 (08:20→16:29)
[2019-12-13] MEDS: ALLOPURINOL 100 MG TABLET PO SCH (08:20)
[2019-12-13] MEDS: CLOPIDOGREL BISULFATE 75 MG TABLET PO SCH (08:20)
[2019-12-13] MEDS: BLOOD SUGAR DIAGNOSTIC 1 EACH STRIP IN SCH ×4 (08:40→22:22)
[2019-12-13] MEDS: INSULIN ASPART/LISPRO 100 UNIT/ML CARTRIDGE SQ PRN ×4 (09:23→22:41)
[2019-12-13] MEDS: VANCOMYCIN 0.75 GM in IV D5W 250 ML IV SCH ×2 (11:26→23:52)
--- NOTE | 2019-12-13 11:33 | NUR ---
ms rn note new hl o lt fa inserted with good blood return melisa 22
[2019-12-13 12:00] VITALS: BP 120/52
--- NOTE | 2019-12-13 12:25 | NUR ---
OCEAN FREIGHT FORWARDER NOTE PER DR SALINAS OK TO D\C MOTRIN DOPPLEX STUDY LT LOWER LEG DONE ORDERED
--- NOTE | 2019-12-13 13:57 | NUR ---
telephone interceptor operator note able to eat self lunch , needs attended not in distress
--- NOTE | 2019-12-13 14:42 | NUR ---
telemetry monitor note transferred patient to room 306 with stable condition , report given to Margaux rosa
--- NOTE | 2019-12-13 15:03 | NUR ---
RECEIVED PATIENT FROM LUPILLO NURSE GUANAKITO. PATIENT IS A/OX3, ABLE TO MAKE NEEDS KNOWN. NOT IN ANY FORM OF DISTRESS. VSS. NO SOB. DENIED PAIN OR DISCOMFORT AT THIS TIME. IV ACCESS INTACT AND PATENT. PATIENT SITUATED IN THE ROOM. BELONGINGS CHECKED BY SHERLY REDDING. BED IN LOW/LOCKED POSITION. SIDERAILS UPX2,CALL LIGHT IN REACH. WILL CONT TO MONITOR ACCORDINGLY.
[2019-12-13 15:08] VITALS: BP 130/67
--- NOTE | 2019-12-13 19:18 | NUR ---
PATIENT IN STABLE CONDITION. ALL NEEDS ATTENDED AND PROVIDED. ALL DUE MEDS GIVEN ORDERED. KEPT PATIENT SAFE AND COMFORTABLE. BED IN LOW/LOCKED POSITION, SIDERAILS UPX2, CALL LIGHT IN REACH. ENDORSED ACCORDINGLY TO LAVERN SANTOS
[2019-12-13 20:00] VITALS: BP_SYST 103; BP_SYST 109; BP_DIAS 50
--- NOTE | 2019-12-13 20:00 | NUR ---
MS/RN OPENING NOTES RECEIVED PATIENT IN BED, AWAKE, ALERT X3, ABLE TO VERBALIZE NEEDS, BELONGINGS WITHIN REACH, BED LOCKED, CALL LIGHTS WITHIN REACH, RESPIRATIONS EVEN AND UNLABORED, IV SITE ON LEFT FOREARM PATENT, TO ADMINISTER IV ANTIBIOTIC SCHEDULED.WILL MONITOR, RECEIVED ENDORSEMENT FROM AM RN FOR NERY. PATIENT SAFETY PRECAUTIONS PLACED, DISCUSSED IMPORTANCE OF USING CALL LIGHTS FOR ASSISTANCE, PATIENT URINAL WITHIN REACH, ABLE TO EAT DINNER AND COMPLETED FOOD TRAY. TO MONITOR .
[2019-12-13] MEDS: ATORVASTATIN 10 MG TABLET PO SCH (22:22)
[2019-12-13] MEDS: MIRTAZAPINE 15 MG TABLET PO SCH (22:23)
--- NOTE | 2019-12-13 22:26 | NUR ---
BLOOD SUGAR CHECK AT 381. ALERT, ORIENTED TO GIVE COVERAGE.
[2019-12-14] MEDS: ANCEF 1 GM/50 ML D5W IV SCH ×4 (04:08→13:17)
[2019-12-14] MEDS: BLOOD SUGAR DIAGNOSTIC 1 EACH STRIP IN SCH ×2 (05:34→11:47)
[2019-12-14] MEDS: INSULIN ASPART/LISPRO 100 UNIT/ML CARTRIDGE SQ PRN ×2 (06:16→11:49)
[2019-12-14 06:23] LABS: CALCIUM, SERUM 8.4 mg/dL (8.5-10.1); CARBON DIOXIDE 25 mmol/L (21-32); CHLORIDE 102 mmol/L (98-107); CREATININE 1.4 mg/dL (0.6-1.3); POTASSIUM 3.7 mmol/L (3.5-5.1); SODIUM SERUM 137 mmol/L (136-145); UREA NITROGEN, BLOOD 41 mg/dL (7-18)
[2019-12-14 06:31] LABS: GLUCOSE 392 mg/dL (74-106)
--- NOTE | 2019-12-14 06:36 | NUR ---
CRITICAL LAB GLUCOSE RESULT RECEIVED AT 392 WITH SLIDING SCALE COVERAGE PER MD ORDER , BLOOD SUGAR OBTAINED AND ADMINISTERED SUBCUTANEOUSLY EARLIER AT 10 UNITS WITNESSED BY ANOTHER RN
--- NOTE | 2019-12-14 06:38 | NUR ---
306/ms/rn notes ATTENDED ALL NEEDS,MONITORED FOR SAFETY, KEPT COMFORTABLE. BED LOCKED, CALL LIGHTS WITHIN REACH, IV ANTIBIOTIC ADMINISTERED WITH NO S/S OF ADVERSE REACTION, ABLE TO SLEEP DURING THE NIGHT,BED ALARM ON FOR SAFETY.
[2019-12-14 08:00] VITALS: BP_SYST 113; BP_SYST 130; BP_DIAS 46; BP_DIAS 51
--- NOTE | 2019-12-14 08:00 | NUR ---
MS RN NOTES PATIENT ALERT, ORIENTED X3. IN BED RESTING. PERIPHERAL IV INTACT PATENT. BED IN LOW LOCKED POSITION. CALL LIGHT WITHIN REACH. SAFETY MEASURED IN PLACE WILL CONTINUE TO MONITOR.
[2019-12-14] MEDS: METFORMIN 500 MG TABLET PO SCH ×2 (08:29→16:22)
[2019-12-14] MEDS: PANTOPRAZOLE 40 MG TABLET.DR PO SCH (08:29)
[2019-12-14] MEDS: CHOLECALCIFEROL 1,000 UNIT TABLET (VIT D3) PO SCH (08:29)
[2019-12-14] MEDS: CLOPIDOGREL BISULFATE 75 MG TABLET PO SCH (08:29)
[2019-12-14] MEDS: ALLOPURINOL 100 MG TABLET PO SCH (08:30)
[2019-12-14] MEDS: AMLODIPINE BESYLATE 5 MG TABLET PO SCH (08:30)
[2019-12-14] MEDS: METOPROLOL SUCCINATE 25 MG TAB.SR.24H PO SCH (08:30)
[2019-12-14 16:00] VITALS: BP 128/53
[2019-12-14] MEDS: INSULIN GLARGINE, 100 UNIT/ML CARTRIDGE SQ SCH (16:19)
--- NOTE | 2019-12-14 17:15 | NUR ---
MS RN NOTES PATIENT DISCHARGED TO [facility] IN STABLE CONDITION. PATIENT ALERT, ORIENTED X3. PATIENT REFUSED DISCHARGE PICTURES. REPORT AND DISCHARGE INSTRUCTIONS PROVIDED TO PATIENT AND RN AT SNF NAME [facility]. DISCHARGE PROTOCOL FOLLOWED. PATIENT VERBALIZED UNDERSTANDING OF DISCHARGE INSTRUCTIONS. ALL BELONGINGS ACCOUNTED FOR, BELONGING LIST SIGNED. PATIENT TRANSFERRED VIA AMBULANCE.
[2019-12-14] MEDS ORDERED: VANCOMYCIN 0.75 GM in IV D5W 250 ML IV SCH (23:00)
[2019-12-15] MEDS ORDERED: INSULIN GLARGINE, 100 UNIT/ML CARTRIDGE SQ SCH (16:00)
== END 2019-12-14 17:19 | DRG 603 ==
LOC: ER 21:28 → ICU 23:39 → MEDSG1 12-12 03:01 → MED 12-13 14:31
PROVIDERS: ADMIT Internal Medicine; ATTEND Internal Medicine
DX: L03.116 Cellulitis of left lower limb (principal); C90.12 Plasma cell leukemia in relapse; Z86.73 Personal history of transient ischemic attack (TIA), and cerebral infarction without residual deficits; G14 Postpolio syndrome; Z79.4 Long term (current) use of insulin; E11.65 Type 2 diabetes mellitus with hyperglycemia; N18.3 Chronic kidney disease, stage 3 (moderate); Z85.828 Personal history of other malignant neoplasm of skin; Z82.5 Family history of asthma and other chronic lower respiratory diseases; Z80.3 Family history of malignant neoplasm of breast; Z79.899 Other long term (current) drug therapy; M10.9 Gout, unspecified; Z79.82 Long term (current) use of aspirin; Z79.84 Long term (current) use of oral hypoglycemic drugs; D89.9 Disorder involving the immune mechanism, unspecified; I12.9 Hypertensive chronic kidney disease with stage 1 through stage 4 chronic kidney disease, or unspecified chronic kidney disease; E11.51 Type 2 diabetes mellitus with diabetic peripheral angiopathy without gangrene
CPT/HCPCS: 36415; 80048-TC; 80053-TC; 80076-TC; 80202-TC; 81000-TC; 82945-TC; 82962-TC; 85025-TC; 85730-TC; 87081-TC; 87086-TC; 93926-TC; 93971-TC; G0378; J0690; J0696; J1815; J3370; J7050; J7060; U0003-CS